=== PATIENT | female | born 1995 | race Caucasian/White ===

== ENCOUNTER 2023-10-23 21:13 | Emergency (ER) | payer BC, SELFPAY ==
[2023-10-23 21:16] VITALS: BP 122/81
--- NOTE | 2023-10-23 21:36 | ED.GENMED ---
History of Present Illness
General
Chief Complaint: Abdominal Symptoms
Source: patient
Exam Limitations: none
Time Seen by Provider: 10/23/23 21:33
Nursing documentation reviewed up to this point in time: agreed with
History of Present Illness
History of Present Illness:
This is a 28 y/o female with a PMH of irritable bowel syndrome presenting to the emergency department today with concerns of left sided abdominal pain that radiates into the pelvis. Her IUP was confirmed via an ultrasound and blood work with
her OBGYN at [place]. Patient has had follow up appointments with her OBGYN since then. Patient states that she has had abdominal pain on and off during her and states that she has talked to her OBGYN about this who has said it was normal.
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 Patient states that this pain today was
worse than it has been in the past. She states that now the pain has improved slightly but now she just feels very uncomfortable. She denies fevers, chills, nausea, vomiting, vaginal bleeding, changes in her discharge, dysuria, diarrhea, abdominal
trauma.
Review of Systems
Review of Systems
All Other Systems: ROS reviewed and negative except as documented in HPI and ROS
Phy Exam
Physical Exam
Physical Exam:
General: Patient is well appearing and in no acute distress; non-toxic
Skin: Warm and dry, no rashes or lesions
Head: Normocephalic, atraumatic
Eyes: Sclera non-icteric. EOMs intact. PERRLA.
Cardiac: Regular rate and rhythm, no murmurs
Peripheral Vascular: No lower extremity swelling or edema
Pulm: Normal respiratory effort, no wheezes, rales, or rhonchi.
Abdomen: Mild left sided abdominal tenderness to palpation. Gravid uterus.
Neuro: CN II-XII intact, no focal neurologic deficits.
Psychiatric: Appropriate mood and affect.
Course
Orders/Labs/Results
Orders:
Orders
10/23/23 21:54
US Limited Urgent
Reason For Exam: left sided abdominal pain, pelvic pain, (17 weeks)
10/23/23 22:02
Complete Blood Count/With Diff Urgent
Comprehensive Metabolic Panel Urgent
Urinalysis Reflex To Culture Urgent
Date Specimen was Collected: 10/23/23
Time Specimen was Collected: 21:57
Abnormal Lab Results
10/23/23
22:02
RBC 3.39 L 10^6/uL
(4.20-5.40)
Hgb 10.8 L g/dL
(12.0-16.0)
Hct 30.0 L %
(37.0-47.0)
MCH 31.9 H pg
(27.0-31.0)
Sodium 134 L mmol/L
(135-145)
Creatinine 0.5 L mg/dL
(0.6-1.0)
10/23/23 22:02
10/23/23 22:02
Vital Signs
Initial and Last Documented VS:
Initial Vital Signs
Temp Pulse Resp BP Pulse Ox
98.7 F 68 18 122/81 100
10/23/23 21:16 10/23/23 21:16 10/23/23 21:16 10/23/23 21:16 10/23/23 21:16
Last Documented Vital Signs
Temp Pulse Resp BP Pulse Ox
98.2 F 70 16 113/62 100
10/23/23 23:25 10/23/23 23:25 10/23/23 23:25 10/23/23 23:25 10/23/23 23:25
MDM/Problems Addressed
Differential Diagnosis Includes:
ddx include round ligament pain of , spontaneous , gastroenteritis, IBS, diverticulitis,
MDM/Problems Addressed:
Abdominal Pain:
This is a 28 y/o female with a PMH of irritable bowel syndrome presenting to the emergency department today with concerns of left sided abdominal pain that radiates into the pelvis. Patient states that she has had these symptoms during her
but it is worse today. On exam, she does have some mild tenderness palpation in the left abdomen. CBC and straits some mild anemia, CMP unremarkable. Urinalysis negative for infection. Ultrasound demonstrates IUP with closed cervical
os, heart tones 130s, no evidence of ovarian torsion on ultrasound. Findings discussed with patient, return precautions discussed, patient stable for discharge.
Chronic conditions affecting care:
IBS
Acute Exacerbation and/or Progression of Chronic Illness:
n/a
*Pulse Oximetry
Patient hypoxic: no
*Critical Care Note
Total Time (30-74mins, 75-104mins- exclusive of procedures): Not Applicable
Data Reviewed
Review of Other/Old Records Reveals: Records (No previous ER records to review) and Discharge Summary (No discharge summaries to review )
Source: patient and records
Prescriptions/Medications Considered But Not Given:
n/a
Further Testing Considered But Not Given:
n/a
Patient Management
Escalation/DeEscalation of care consider admission/obs:
Admit not indicated. Case discussed with my attending Dr. Mirza.
ED Attending Note
-
Portions of this chart may have been created with voice recognition software.� Occasional wrong word or��sound alike� substitutions may have occurred due to the inherent limitations of voice recognition software.
Discharge Plan
Departure
Patient Disposition: Home (Routine Discharge)
Date of Disposition: 10/23/23
Time of Disposition: 23:15
Patient with high blood pressure during this ER visit?: Yes
Condition: Good
Discharge Problem:
Pain of round ligament during
Instructions: Acetaminophen, Abdominal Pain
Referrals:
Victor Hugo Aranda MD [Family Provider] -
Activity Restrictions/Additional Instructions:
You can take Tylenol as needed for pain.
Please call your internal audit consultant to schedule a follow up appointment.
Your hemoglobin today was slightly low at 10.8. Please follow-up with your primary care provider.
Please return to the emergency department should you experience fevers or chills, burning with urination, vaginal bleeding, nausea or vomiting, chest pain, shortness of breath, any other signs or symptoms concerning to you.
Interventions
Interventions:
*Risk Screen - Suicide Last Done: 10/23/23 22:25
*General Assessment Last Done: 10/23/23 22:25
*Neglect/Abuse Screening Last Done: 10/23/23 22:25
[facility]-Aobfzz-Cyqbvzlmyg Assessment Last Done: 10/23/23 23:25
Discharge Date and Time
Print Language: FRENCH
[2023-10-23 22:19] LABS: % Basophils 0.2 % (0-2); % Eosinophils 0.6 % (0-6); % Immature Granulocytes 0.1 % (0-0.5); % Lymphocytes 26.3 % (20.5-51.1); % Monocytes 5.8 % (1.7-9.3); Absolute Eosinophils 0.1 10^3/uL (0-0.7); Absolute Lymphocytes 2.3 10^3/uL (1.2-3.4); Absolute Monocytes 0.5 10^3/uL (0.1-0.6); Absolute Neutrophils 5.8 10^3/uL (1.4-6.5); Hemoglobin 10.8 g/dL (12.0-16.0); Mean Corpuscular Hgb 31.9 pg (27.0-31.0); Mean Corpuscular Volume 88.5 fL (81.0-99.0); Nucleated Red Blood Cells % 0 %; Platelet Count 175 10^3/uL (130-400); Red Blood Cell Count 3.39 10^6/uL (4.20-5.40); Red Cell Dist. Width 12.9 % (11.5-14.5); White Blood Cell Count 8.7 10^3/uL (4.8-10.8)
[2023-10-23 22:21] LABS: Urine Albumin Negative (Neg - Trace); Urine Bilirubin Negative (Negative); Urine Character Clear (Clear); Urine Color Straw; Urine Glucose Negative (Negative); Urine Ketone Negative (Negative); Urine Leukocyte Negative (Negative); Urine Nitrite Negative (Negative); Urine Occult Blood Negative (Negative); Urine Urobilinogen Negative (Neg - 1+)
[2023-10-23 22:33] LABS: ALT (SGPT) 21 U/L (0-35); AST (SGOT) 23 U/L (14-36); Alkaline Phosphatase 46 U/L (38-126); Blood Urea Nitrogen 12 mg/dl (7-17); Calcium 9.5 mg/dl (8.4-10.2); Carbon Dioxide 26 mmol/L (22-30); Chloride 103 mmol/L (98-107); Glucose 77 mg/dl (70-99); Potassium 3.7 mmol/L (3.5-5.1); Sodium 134 mmol/L (135-145); Total Bilirubin 0.3 mg/dl (0.2-1.3); Total Protein 6.3 g/dl (6.3-8.2); eGFR > 60.00
[2023-10-23 23:25] VITALS: BP 113/62
== END 2023-10-23 23:55 | disposition home or self-care (01) ==
LOC: EMR 21:13
PROVIDERS: Physician Assistant; EMERGENCY PHYSICIAN Emergency Medicine; FAMILY PHYSICIAN Family Medicine
DX: O26.892 Other specified pregnancy related conditions, second trimester (principal); Z3A.17 17 weeks gestation of pregnancy; R10.32 Left lower quadrant pain; R10.2 Pelvic and perineal pain; R03.0 Elevated blood-pressure reading, without diagnosis of hypertension; K58.9 Irritable bowel syndrome, unspecified; Z88.0 Allergy status to penicillin
CPT/HCPCS: 99284; 76815; 80053; 81003; 85025